=== PATIENT | female | born 1975 | race Caucasian/White ===

== ENCOUNTER → 2018-10-04 | Outpatient (REF) | payer BC, OTHER ==
[2018-10-04 13:31] LABS: APPEARANCE, URINE CLEAR (CLEAR); BACTERIA, URINE AUTO NEGATIVE (NEGATIVE); BILIRUBIN, URINE AUTO NEGATIVE (NEGATIVE); BLOOD, URINE BLOOD NEGATIVE (NEGATIVE); COLOR, URINE STRAW (YELLOW); GLUCOSE, URINE (UA) AUTO NEGATIVE (NEGATIVE); KETONE, URINE AUTO NEGATIVE (NEGATIVE); LEUKOCYTE ESTERASE, URINE AUTO NEGATIVE (NEGATIVE); NITRITE, URINE AUTO NEGATIVE (NEGATIVE); PROTEIN, URINE AUTO NEGATIVE (NEGATIVE); RBC, URINE AUTO 0 /HPF (0-3); SPECIFIC GRAVITY URINE AUTO 1.005 (1.002-1.035); SQUAMOUS EPITHELIAL CELL UR AU 1 /HPF (0-6); UROBILINOGEN, URINE AUTO 0.2 mg/dL (0.0-2.0); WBC, URINE AUTO 0 /HPF (0-3)
== END ==
LOC: M SMT 13:10
PROVIDERS: ATTEND Nurse Practitioner Women's Health
DX: R31.29 Other microscopic hematuria (principal)

== ENCOUNTER 2019-03-28 13:04 | Emergency (ER) | payer OTHER, BC ==
[~2019-03-28] VITALS: Ht 149.9 cm; Wt 79.5 kg
[2019-03-28 13:04] VITALS: BP 138/79
[2019-03-28] MEDS ORDERED: VITAD1000T PO (13:11)
[2019-03-28] MEDS ORDERED: ALL10TAB28 (13:11)
[2019-03-28] MEDS ORDERED: TRUVTAB PO ×2 (14:11→14:37)
[2019-03-28] MEDS ORDERED: RALT40TA PO ×2 (14:11→14:37)
[2019-03-28] MEDS ORDERED: EXPOSURE KIT-ADULT 7 DAY SUPPLY PO ONE (14:15)
[2019-03-28] MEDS ORDERED: ONDA4TAB6 PO (14:37)
== END 2019-03-28 14:22 | disposition home or self-care (01) ==
LOC: M ED 13:04
DX: S61.231A Puncture wound without foreign body of left index finger without damage to nail, initial encounter (principal); W46.0XXA Contact with hypodermic needle, initial encounter; Y92.89 Other specified places as the place of occurrence of the external cause; Y99.0 Civilian activity done for income or pay; Z77.21 Contact with and (suspected) exposure to potentially hazardous body fluids; Z79.3 Long term (current) use of hormonal contraceptives; Z79.899 Other long term (current) drug therapy

== ENCOUNTER → 2024-01-14 | Outpatient (CLI) | payer OTHER ==
[~2024-01-14] MED LIST: CETI-24; CHOL100029 PO; EMTR1TAB16 PO; ONDA4TAB6 PO; RALT40TA PO
== END ==
LOC: M WHC 09:52
PROVIDERS: ATTEND Nurse Practitioner Family
DX: M12.89 Other specific arthropathies, not elsewhere classified, multiple sites (principal)